=== PATIENT | male | born 1975 | race Caucasian/White ===

== ENCOUNTER 2018-02-16 17:38 | Emergency (ER) | payer OTHER, SELFPAY ==
[2018-02-16 17:40] VITALS: BP 130/87; PULSE 99; RESP 20; TEMP 36.5; O2SAT 99; BMI 24.2
--- NOTE | 2018-02-16 17:51 | PC.NURSE ---
lt distal 3rd digit laceration/avulsion from kitchen knife, bleeding controlled with light pressure, tdap up to date per pt, irrigated with 500ml NS
--- NOTE | 2018-02-16 18:15 | ED_ITS ---
HPI - Extremity Injury (Upper) General Chief Complaint: Extremity Injury, Upper Stated Complaint: LACERATION TO MIDDLE FINGER LEFT HAND Time Seen by Provider: 02/16/18 18:15 Source: patient Mode of arrival: ambulatory Limitations: no limitations History of Present Illness HPI narrative: 43-year-old [id number] male here for evaluation of a laceration to his left middle finger. Patient states that he cut it while he was at work just prior to arrival. Was cut with a kitchen knife. Has had a tetanus shot within the past 5 years. Washed it several times at work and put pressure on it before coming into the emergency department. Related Data Previous Rx's Medication Instructions Recorded terbinafine HCl [Lamisil AT] 1 oscar TOPICAL BID #12 gm 08/12/17 Review of Systems Constitutional Denies chills, Denies fever(s), Denies lethargy and Denies weakness Cardiovascular Comments: Oozing from the laceration of his left middle finger Musculoskeletal Comments: Laceration to left middle finger otherwise no other musculoskeletal complaints Integumentary/Breasts Comments: Laceration to left middle finger Neurologic Denies weakness Comments: Tingling sensation to the tip of his left middle finger Hematologic/Lymphatic Denies easy bruising PFSH Social History Smoking Status: Current every day smoker Exam Initial Vital Signs Initial Vital Signs: Vital Signs Temperature 97.7 F 02/16/18 17:40 Pulse Rate 99 H 02/16/18 17:40 Respiratory Rate 20 02/16/18 17:40 Blood Pressure 130/87 H 02/16/18 17:40 Pulse Oximetry 99 02/16/18 17:40 Const General: cooperative and well developed Nutritional Appearance: well nourished Orientation: alert, awake, oriented x3 and not confused Cardio Pulses: radial pulses present Other: Capillary refill less than 2 sec left hand Skin Other: Patient with a 1 cm round area of avulsion of the palmar aspect of his left middle finger on the radial aspect. Oozing from the site. No foreign body seen. Neuro Other: Sensation intact to light touch left hand Extrem Other: Left hand unremarkable except for laceration to the palmar aspect of the middle finger Course Orders Ordered: Discontinued Medications Hydrocodone Bitart/Acetaminophen ([place] 5/325) 1 tab PO NOW ONE Stop: 02/16/18 18:32 Vital Signs - 8 hr 02/16/18 17:40 Temperature 97.7 F Pulse Rate 99 H Respiratory Rate 20 Blood Pressure 130/87 H Pulse Oximetry 99 MDM - Extremity Injury (Upper) MDM Narrative Medical decision making narrative: Patient with avulsion injury to the palmar aspect of his finger. Edges are too far apart for suturing today. Patient is up-to-date on his tetanus. Gel-Foam and Telfa were placed over the area for bleeding control. He was then placed in tube gauze. He was given care instructions. He was given bandages to cover the area. He was given return precautions. He expressed understanding and agreement with plan Discharge Plan Departure Patient Disposition: Home, Self-Care Clinical Impression: Laceration of finger of left hand Instructions: DI for Open Laceration Activity Restrictions/Additional Instructions: Keep the area clean and dry like we discussed. This will take some time to heal and there will be a scar. Recommend that you do not soak your hand anything until the area is healed. You can shower and wash her hands like normal. Return to the emergency department for any new or worsening symptoms Prescriptions: No Action terbinafine HCl [Lamisil AT] 1 % cream 1 oscar Topical BID Qty: 12 RF: 1 Stand Alone Forms: Work/School Restrictions
[2018-02-16] MEDS: HYDROCODONE/ACET 5/325 TABLET 1 TAB PO (18:42)
== END 2018-02-16 18:55 | disposition home or self-care (01) ==
PROVIDERS: Emergency Provider Emergency Medicine
DX: S61.213A Laceration without foreign body of left middle finger without damage to nail, initial encounter (principal); W26.0XXA Contact with knife, initial encounter; Y99.0 Civilian activity done for income or pay
CPT/HCPCS: 99282

== ENCOUNTER 2019-08-08 13:30 | Day surgery (SDC) | payer OTHER, MEDICAID, SELFPAY ==
[2019-08-02 14:47] VITALS: BMI 22.8
[2019-08-08] VITALS (12 sets, daily range): BP systolic 111–158; BP diastolic 71–103; PULSE 61–85; RESP 10–18; TEMP 36.4–37.4; O2SAT 93–100; BMI 22.8
[2019-08-08] MEDS: LACTATED RINGERS 1,000 ML 42 ML IV ×2 (15:30→21:01)
--- NOTE | 2019-08-08 18:14 | PM.PREOP ---
Pre-operative Note Interval Note History & Physical reviewed/Exam performed by Physician: Yes Changes to H&P: No
[2019-08-08] MEDS: CEFAZOLIN 2 GM/100 ML FROZ.PIGGY IV (18:24)
--- NOTE | 2019-08-08 18:48 | SUR.OPER ---
Supine on padded OR bed, head on pillow, arms secured on padded arm boards at <90 degrees abduction, legs uncrossed, safety belt at thigh, tape over blanket over lower legs.
[2019-08-08] MEDS: BUPIVACAINE 0.5% (PF) VIAL 30 ML INJ (18:54)
[2019-08-08] MEDS: CEFOTETAN 2 GM/50 ML PIGGYBACK IV (20:36)
--- NOTE | 2019-08-08 21:23 | PM.OP.1 ---
Operative Date/Time/Diagnoses Date of procedure: 08/08/19 Time of procedure: 21:23 Pre-op diagnosis: right inguinal hernia Post-op diagnosis: other (Sliding right inguinal hernia) Procedure & Clinicians Procedure: Repair with Shouldice technique Same procedure as scheduled: Yes Indications: Large symptomatic right inguinal hernia Surgeon: David Moore Click Yes if Unassisted: Yes Anesthesia Type: General Operative Notes Findings: Hernia extending into the scrotum. Wall contained loops of small bowel within the wall of the hernia sac itself consistent with a sliding hernia Closure Type: primary Specimen(s): none sent Prosthetic devices, grafts, tissues, transplants, or devices: None Estimated Blood Loss (mL): 50 Blood products transfused: none Procedure in detail: Was placed supine on the operating room table underwent general LMA anesthesia. He was prepped and draped in the usual fashion. The scrotum was prepped into the field. Local anesthetic was infiltrated and transverse incision made overlying the internal ring the right lower quadrant. This was carried down to the level of the external oblique. The external oblique was opened parallel with its fibers through the external ring. The external oblique was densely adherent to the cremaster. I had to separate these with cautery dissection. Once freed I attempted to lift the cord structures off the underlying structures but this proved impossible because of the large size of the hernia sac. I opened the cremaster proximally in identified the sac. I opened into it at our able to see the wall of the sac on the inside I dissected the cord structures from the sac. This was a very difficult tedious process. The adhesions were dense and I had to go slowly. It was difficult but ultimately I was able to separate the cord structures from the sac. There was a huge amount of tissue in the wall of the sac proximally and this was a very large structure. It appeared to be intestine. I dissected the intestine which turned out to be small-bowel from the wall and delivered it into the abdomen. In so doing because of the very difficult dissection 1 very tiny enterotomy was made (this was unavoidable) which was immediately repaired with 3-0 silk interrupted sutures in 2 layers. The 1st layer was inverted by the 2nd. I decided not to do any further dissection after that enterotomy because it was just getting more and more difficult to do. I reduced the intestine and then did a pursestring closure of the peritoneum/sac using a 2 0 silk. Once this was tied the sac distal was removed and the edge over sewed with 2 0 sit back running suture lines. The stump was allowed to retract and I turned my attention to the floor. The anatomy was quite distorted I chose to open the floor and perform a shoulder ice repair because I felt it would allow me to actually see the layers I was suturing to. Starting at the pubic tubercle a 2 0 Prolene was tied at this level. I ran the cut edge of the lateral floor to the underside of the medial floor into transversalis fascia. The inguinal ligament edge was then sewed to the cut edge of the floor medially. And tied back at the original suture. This suture was run to a point creating a very snug internal ring. This was felt to be necessary because the patient did not want me to use mesh and I had to prevent this large sliding hernia from coming down adjacent to the cord again. A 2nd layer was then run starting at the internal ring suturing external oblique above the inguinal ligament to the internal oblique above the prior suture line. This was run forming a tight internal ring down to the pubic tubercle and back. Two 0 Prolene was used for this layer as well. There care felt adequate and the pre vent blood flow to and from the testicle. Infected was loose enough that I decided to close the ring superior and lateral to the internal ring suturing the internal oblique to the edge of the inguinal ligament at that level. I also incorporated the very thickened cremaster into this suture material. Three sutures were placed and the ring was felt to be snug enough to prevent the sliding portion of this hernia from coming back. The external oblique was closed a running 3 0 Vicryl. The subcu was closed with interrupted 3 0 Vicryl and skin was closed running 4 0 Vicryl subcuticular stitch and Steri-Strips. The testicle was pulled is low into the scrotum as possible. 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 It lasted at least twice as long as even a long inguinal hernia repair would (well over 3 hours) .It Was quite quite complex. Complications: none Post-operative Condition: stable Disposition: PACU Plan for aftercare: Due to the late hour, degree of blood loss, and the difficulty of the operation patient will be admitted overnight for pain control and observation.
[2019-08-08] MEDS: fentaNYL 100 MCG/2 ML INJ IV ×2 (21:45→21:52)
[2019-08-08] MEDS: OXYCODONE/ACETAMINOPHEN 5/325 TABLET 1 TAB PO (21:51)
--- NOTE | 2019-08-08 22:05 | SUR.PHASEI ---
discussed pain level and medication need, states that his site feels like it did when he was walking around pre-op without his hernia belt and I have a high pain threshold. Currently rates pain 02/28. Explained that we need to keep him after medicated to monitor and gave him the option of more IV medication or waiting and going to his room sooner. States that he prefers to wait and that he is tolerating this level or pain. Eyes closed, resting without moaning, grimace, or restlessness.
--- NOTE | 2019-08-08 22:11 | SUR.PHASEI ---
2142 Heart rhythm irregular, shown to Dr. Velasquez, stated that it isn't malignant, no orders given. came and spoke to patient shortly after that.
--- NOTE | 2019-08-08 22:12 | SUR.PHASEI ---
resting calmly,no non-verbal pain clues. When asked about his pain, stated 'eh, it's just typical pain.' States 04/30, but doesn't feel that he needs meds. Discussed medication with patient, plan to transfer him and have RN give meds upon arrival. 2216 Called too report that we would be up to AC soon, RN on a break, will transfer and stay with the patient until the Rn has returned (should be about the same time if not sooner)
--- NOTE | 2019-08-08 22:46 | SUR.PHASEI ---
2227 to room 223, transferred into bed; down and locked, call light within reach. dressing remains CDI, report given, Pt. drowsy, moved easily into the bed without assistance. Reported that patient would like medication and food. No questions/concerns. No moaning, restlessness, crying. Skin warm and dry, resp even and regular.
[2019-08-09] MEDS: DEXTROSE 5%-0.45% NS 1,000 ML 125 ML IV ×2 (00:17→08:47)
[2019-08-09 00:28] VITALS: BMI 22.8
[2019-08-09 00:45] VITALS: BP 116/68; PULSE 75; RESP 17; O2SAT 94
[2019-08-09 02:00] VITALS: BP 116/63; PULSE 62; RESP 18; TEMP 36.9; O2SAT 95
[2019-08-09 05:24] LABS: Add Manual Diff / Slide Review NO; Basophils Absolute Auto 0 /uL (0-100); Basophils Percent Auto 0.2 % (0-2); Eosinophils Absolute Auto 0 /uL (0-450); Hematocrit 36.1 % (41-53); Hemoglobin 11.7 g/dL (13.5-17.5); Lymphocytes Absolute Auto 700 /uL (1100-4500); Lymphocytes Percent Auto 5.2 % (25-40); Mean Corpuscular HGB Conc 32.4 % (30-36); Mean Corpuscular Hemoglobin 26.7 PG (26-34); Mean Corpuscular Volume 82.6 fL (80-100); Monocytes Absolute Auto 600 /uL (0-900); Monocytes Percent Auto 4.7 % (3-14); Neutrophils Absolute Auto 11600 /uL (1500-7000); Neutrophils Percent Auto 89.9 % (50-75); Platelet Count 245 X10^3/uL (150-400); Red Blood Cell Count 4.37 X10^6/uL (4.5-5.9)
[2019-08-09 05:33] VITALS: BP 126/71; PULSE 70; RESP 17; TEMP 37.4; O2SAT 98
[2019-08-09 05:54] LABS: Anisocytosis 2+; Poikilocytosis 1+
[2019-08-09] MEDS: OXYCODONE IR 5 MG TABLET 10 MG PO (07:58)
[2019-08-09] MEDS: ACETAMINOPHEN 325 MG TABLET 650 MG PO (07:58)
[2019-08-09] MEDS: GABAPENTIN 300 MG CAPSULE PO (07:59)
--- NOTE | 2019-08-09 11:18 | CM.DANOTE ---
DCP; Case received, EMR reviewed and met with patient. Introduced self and role. Was able to briefly meet with patient in his room to obtain baseline activity and living situation. DCP assessment/template completed with information currently available. Patient is a 44 year old male who admitted yesterday morning to the care of the surgical team. PCP: None at this time. Surgeon: Dr. Cavazos. Payer: confirmed: [employer]. Patient is a 44 year old male who came to the hospital for a surgical procedure. He had a unilateral inguinal hernia repair. Met briefly with patient in his room. He was sitting up in his chair. He is independent. He is currently employed at [employer]. Patient stated that he had problems with his hernia for a while. Asked patient if he was still driving, and he stated, no, I'm not allowed to. 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 Stated that he also did not have a place to live, but will be staying with a female friend. He does not have a current provider. Stated, he hasn't seen a doctor since he graduated high school, when his mother worked in a medical office. Encouraged patient to call resource center here, or can provide patient the name of some providers in this area. P: DCP to continue to follow closely, he should be able to go home when he is medically stable. Funmilayo Sunshine RN/[employer]
[2019-08-09 12:00] VITALS: BP 123/75; PULSE 61; RESP 16; TEMP 37.2; O2SAT 98
--- NOTE | 2019-08-09 14:46 | PC.NURSE ---
Discharge- Pt states pain controlled. Aware of f/u apt with MD. Pt left with Rx for oxy. D/c instructions provided to pt. He has a friend coming from [facility], pt wanted to wait outside for ride. Able to walk safely and independently. Pt took all belongings with him.
== END 2019-08-09 14:52 | disposition home or self-care (01) ==
LOC: OR 14:07 → AC 22:20
PROVIDERS: Visit Provider Specialist
PROC: (CPT 49505; principal; 2019-08-08 14:45)
DX: K40.30 Unilateral inguinal hernia, with obstruction, without gangrene, not specified as recurrent (principal); F17.210 Nicotine dependence, cigarettes, uncomplicated; K66.0 Peritoneal adhesions (postprocedural) (postinfection)
CPT/HCPCS: 49505; 36415; 85025; J0690; J1100; J2250; J2405; J2704; J3010